=== PATIENT | female | born 2005 | race Caucasian/White ===

== ENCOUNTER 2023-08-30 20:19 | Emergency (ER) | payer OTHER ==
[~2023-08-30] VITALS: Ht 180.3 cm; Wt 170.5 kg
[~2023-08-30 20:19] MED LIST: ALBU90OI; FLUT44OIA
[2023-08-30 20:36] VITALS: BP 124/83
[2023-08-30] MEDS ORDERED: CEPH500 PO (21:23)
== END 2023-08-30 21:33 | disposition home or self-care (01) ==
LOC: ER 20:19
DX: L05.01 Pilonidal cyst with abscess (principal); Z79.51 Long term (current) use of inhaled steroids; Z79.899 Other long term (current) drug therapy; Z88.0 Allergy status to penicillin
CPT/HCPCS: 10060; 99282-25; A9270